=== PATIENT | female | born 1965 | race Caucasian/White ===

== ENCOUNTER 2016-05-11 07:15 | Day surgery (SDC) | payer OTHER ==
[2016-05-06 14:30] VITALS: BMI 47.1
[~2016-05-11 07:15] MED LIST: LACTATED RINGERS 1,000 ML IV SCH; LIDOCAINE 1% 20 ML VIAL (10MG/ML) FOR IV START INTRADERMA PRN
[2016-05-11] MEDS ORDERED: LACTATED RINGERS 1,000 ML IV ONE (07:40)
[2016-05-11] MEDS ORDERED: LIDOCAINE 1% 20 ML VIAL (10MG/ML) FOR IV START INTRADERMA ONE (07:41)
[2016-05-11 07:45] VITALS: TEMP 98
[2016-05-11 08:01] LABS: Glucose,Whole Blood 176 mg/dL (75-99)
[2016-05-11] MEDS ORDERED: LIDOCAINE 1% INJ 10MG/ML (20 ML MDV) ONE (08:36)
[2016-05-11] MEDS ORDERED: PROPOFOL 10 MG/ML 20 ML VIAL IV ONE (08:36)
--- NOTE | 2016-05-11 09:04 | P.PCN ---
Date of Procedure: 05/11/16 Procedure(s) Performed: Procedure: Total colonoscopy. Preoperative diagnosis: Screening for neoplasia. Postoperative diagnosis: Exam within normal limits. Preparation: HalfLytely prep. Sedation: Was provided by anesthesia. Brief clinical history: The patient is a 51-year-old female who is scheduled for this evaluation for screening for neoplasia. The patient had a prior exam around 7 years ago and she had couple polyps removed. At this time, she has no abdominal complaints, bleeding or anemia. Procedure: With the patient on her left lateral decubitus position and after informed consent and adequate sedation, the perianal area was inspected and it did not show any fissures or fistulas. He were no masses felt on digital rectal examination. The Olympus CFQ 160L video colonoscope was then inserted in the rectum in the usual fashion and advanced to the cecum. The mucosa appeared healthy. No polyps or tumors were seen or any obvious diverticular disease or other pathology. I retroflexed endoscope in the rectum before the endoscope was withdrawn. Low-grade internal hemorrhoids were noted but there was no evidence of bleeding. The patient tolerated the procedure well. Plan: The patient was reassured. She will follow-up with you as planned. Discussed dietary measures and local care for hemorrhoids. I am recommending repeat exam in 5 years.
[2016-05-11 09:08] VITALS: RESP 16
[2016-05-11 10:06] VITALS: BP 131/64; PULSE 69
== END 2016-05-11 10:06 | disposition home or self-care (01) ==
LOC: ORWHC2ENDO 07:15
DX: Z12.11 Encounter for screening for malignant neoplasm of colon (principal); Z86.010 Personal history of colon polyps; K64.8 Other hemorrhoids; J45.909 Unspecified asthma, uncomplicated; I10 Essential (primary) hypertension; F31.9 Bipolar disorder, unspecified; Z79.4 Long term (current) use of insulin; Z79.899 Other long term (current) drug therapy; Z88.2 Allergy status to sulfonamides
CPT/HCPCS: 81025; J2001; J2704; G0105; 99153

== ENCOUNTER → 2016-05-18 | Outpatient (CLI) | payer OTHER | END | disposition home or self-care (01) | LOC: LABWHC1 09:19 | PROVIDERS: ATTEND Internal Medicine Cardiovascular Disease | DX: E11.9 Type 2 diabetes mellitus without complications (principal) | CPT/HCPCS: 36415; 83704 ==

== ENCOUNTER → 2016-10-12 | Outpatient (CLI) | payer OTHER ==
--- NOTE | 2016-10-13 07:56 | CONS ---
CONSULTATION NOTE FOR SLEEP APNEA This is a 51-year-old morbidly obese female patient who is coming in for sleep apnea evaluation. The patient was diagnosed having SANDRA approximately 8 years ago followed at sleep center of [facility] in [place]. She was given CPAP therapy, which she used for years. Subsequently her use became less as the patient reported she started getting lazy and not utilizing the treatment and then the patient gained significant amount of weight and she is up to 320 pounds for now. It seems that the patient has gained 50 pounds over the past 5 years at least. As such, she has become much more symptomatic. She is snoring. She stops breathing all the time and she is feeling ( ) during the day to the point where the patient has to take naps and she has fallen asleep at undesired times. No history of any motor vehicle accident because of feeling sleepy or drowsy. She goes to bed between 10 to 11 p.m. Wakes up between 6 to 7 a.m. in the morning. On weekends, she wakes up between 8 to 11 a.m. She wakes up frequently throughout the night, mainly for urination. She has been told to jerk and twitch during sleep. She tries to sleep on her side and her back. No sleep paralysis. No hallucinations. No cataplexy. No restless legs in the lower extremities. PAST MEDICAL HISTORY: 1. Obstructive sleep apnea. 2. COPD/asthma. 3. Obese. 4. Hypertension. 5. Diabetes mellitus. 6. Bipolar disorder. Past surgical history includes right shoulder rotator cuff surgery in 2011. Allergies are to SULFA. Patient's medication list includes: 1. Calais 300 mg 4 times a day. 2. Wellbutrin 100 mg 1 tablet a day. 3. Lovastatin 100 mg p.o. q. day. 4. Hydrochlorothiazide 10 mg p.o. q. day. 5. Vitamin D one tablets a day. 6. Symbicort 160/4.5 two puffs twice a day. 7. Ventolin Rescue inhaler. 8. Albuterol nebulizer treatments on a p.r.n. basis. 9. She takes a ( ) laxative. SOCIAL HISTORY: The patient is a nonsmoker. No history of alcohol. No history of IV drugs. She has worked as a cook. FAMILY HISTORY: Brother has obstructive sleep apnea. REVIEW OF SYSTEMS: Twelve point review of systems was done. Positive findings were mentioned above. The patient has increased weight and she has been gaining weight and obesity. She has no grinding of the teeth. No sleep walking. She wakes up with a dry mouth. No anxiety or panic attacks. No palpitation or heartburn. No gasping for air in the middle of the night. No restlessness of the lower extremities. No sleep talking. No sweating. No anxiety. No ( ) phobia. No sexual dysfunction. She has history of bipolar disorder. BP 146/86, pulse 82, respirations 16, temperature 97.5, saturation 97% on room air. Neck size is 19. Henderson score is 13. Weight is 320 pounds. BMI is 48.5. GENERAL APPEARANCE: Obese, calm, comfortable. HEENT: Mallampati class IV. There is no goiter or neck mass. LUNGS: Diminished breath sounds bilaterally, otherwise, clear. HEART: Sounds regular rate and rhythm. Normal S1, S2. No S3, no S4, no murmur. ABDOMEN: Soft, nontender. No organomegaly. EXTREMITIES: No edema, no cyanosis or clubbing. IMPRESSION: 1. Obstructive sleep apnea. The patient is currently symptomatic and she is requesting a re-evaluation. Currently, she is not receiving any treatment. She has been diagnosed having obstructive sleep apnea more than 8 years ago. In the interim, she has gained more than 50 pounds. 2. Hypersomnia. Henderson score of 13. 3. Obesity, body mass index 48. 4. Bipolar disorder. 5. Chronic obstructive pulmonary disease/asthma. 6. Hypertension. 7. Diabetes mellitus. PLAN: 1. Encourage weight loss. 2. Encourage sleeping in side-douglas body position. 3. Proceed with a split night study. If the AHI is less than 40, will proceed with a CPAP titration during the split night to reconfirm and re-establish diagnosis and proceed with treatment. 4. Will continue to follow and make further recommendations based on the results of the split night study. JOCELYNED
== END ==
LOC: SLEEP 13:22
PROVIDERS: ATTEND Internal Medicine Critical Care Medicine
DX: G47.33 Obstructive sleep apnea (adult) (pediatric) (principal); G47.10 Hypersomnia, unspecified; E66.9 Obesity, unspecified; J44.9 Chronic obstructive pulmonary disease, unspecified; I10 Essential (primary) hypertension; E11.9 Type 2 diabetes mellitus without complications; F31.9 Bipolar disorder, unspecified; Z68.42 Body mass index [BMI] 45.0-49.9, adult; Z88.2 Allergy status to sulfonamides; Z79.899 Other long term (current) drug therapy
CPT/HCPCS: 99211

== ENCOUNTER → 2017-07-06 | Outpatient (CLI) | payer OTHER ==
[2017-07-06 16:00] LABS: Albumin 4.2 g/dL (3.5-5.0); Basophils % (A) 0 %; Calcium 10.6 mg/dL (8.4-10.2); Eosinophils # (A) 0.2 k/uL (0-0.7); Eosinophils % (A) 2 %; HCT 38.6 % (34.0-46.0); Lymphocytes # (A) 1.6 k/uL (1.0-4.8); Lymphocytes % (A) 20 %; MCH 30.3 pg (25.0-35.0); MCHC 33.6 g/dL (31.0-37.0); MCV 90.1 fL (80.0-100.0); Mean Platelet Volume 6.9; Monocytes # (A) 0.4 k/uL (0-1.0); Monocytes % (A) 5 %; Neutrophils # (A) 5.7 k/uL (1.3-7.7); Neutrophils % (A) 71 %; Platelet Count 310 k/uL (150-450); Poikilocytosis Slight; Potassium 4.2 mmol/L (3.5-5.1); RBC 4.29 m/uL (3.80-5.40); RDW 13.6 % (11.5-15.5); Total Bilirubin 0.5 mg/dL (0.2-1.3); Total Protein 7.2 g/dL (6.3-8.2); WBC 8.1 k/uL (3.8-10.6)
[2017-07-06 16:15] LABS: T4, Free (Free Thyroxine) 0.96 ng/dL (0.78-2.19)
== END | disposition home or self-care (01) ==
LOC: LABWHC1 15:21
PROVIDERS: ATTEND Psychiatry & Neurology Psychiatry
DX: F31.9 Bipolar disorder, unspecified (principal)
CPT/HCPCS: 36415; 80053; 80178; 84439; 84443; 84479; 85025

== ENCOUNTER → 2017-07-06 | Outpatient (CLI) | payer OTHER ==
--- NOTE | 2017-07-08 10:22 | MM ---
Reason for exam: screening (asymptomatic). Last mammogram was performed 1 year and 7 months ago. History: Patient is postmenopausal and is nulliparous. Family history of breast cancer in maternal grandmother and breast cancer in sister at age 40. Physical Findings: A clinical breast exam by your physician is recommended on an annual basis and results should be correlated with mammographic findings. MG Screening Mammo w CAD Bilateral CC and MLO view(s) were taken. Prior study comparison: December 16, 2015, mammogram, performed at [facility]. There are scattered fibroglandular densities. No significant changes when compared with prior studies. ASSESSMENT: Negative, BI-RAD 1 RECOMMENDATION: Routine screening mammogram of both breasts in 1 year.
== END | disposition home or self-care (01) ==
LOC: RADMAMWWP 14:58
PROVIDERS: ATTEND Family Medicine
DX: Z12.31 Encounter for screening mammogram for malignant neoplasm of breast (principal)
CPT/HCPCS: 77067

== ENCOUNTER → 2018-11-29 | Outpatient (CLI) | payer OTHER ==
--- NOTE | 2018-11-30 12:19 | MM ---
Reason for exam: screening (asymptomatic). Last mammogram was performed 1 year and 5 months ago. History: Patient is postmenopausal and is nulliparous. Family history of breast cancer in maternal grandmother and breast cancer in sister at age 40. Physical Findings: A clinical breast exam by your physician is recommended on an annual basis and results should be correlated with mammographic findings. MG Screening Mammo w CAD Bilateral CC and MLO view(s) were taken. Prior study comparison: July 06, 2017, bilateral MG screening mammo w CAD. December 16, 2015, mammogram, performed at [facility]. There are scattered fibroglandular densities. No suspicious abnormality. No significant changes when compared with prior studies. ASSESSMENT: Negative, BI-RAD 1 RECOMMENDATION: Routine screening mammogram of both breasts in 1 year.
== END | disposition home or self-care (01) ==
LOC: RADMAMWWP 13:24
PROVIDERS: ATTEND Family Medicine
DX: Z12.31 Encounter for screening mammogram for malignant neoplasm of breast (principal)
CPT/HCPCS: 77067

== ENCOUNTER → 2019-01-02 | Outpatient (CLI) | payer OTHER | END | disposition home or self-care (01) | LOC: LABWHC1 09:54 | PROVIDERS: ATTEND Clinical Nurse Specialist Psychiatric/Mental Health | DX: F31.9 Bipolar disorder, unspecified (principal) | CPT/HCPCS: 36415; 80178 ==

== ENCOUNTER → 2019-03-23 | Outpatient (CLI) | payer OTHER ==
--- NOTE | 2019-03-24 10:51 | US ---
EXAMINATION TYPE: US pelvis complete transvag DATE OF EXAM: 03/23/2019 COMPARISON: NONE CLINICAL HISTORY: N95.0 Postmenopausal bleeding, R10.9 Unspecified. TECHNIQUE: . Transabdominal sonographic images of the pelvis were acquired. Transvaginal sonographi c images were medically necessary to better assess the following anatomy: Endometrium Date of LMP: 5 years ago EXAM MEASUREMENTS: Uterus: 6.9 x 3.0 x 3.9 cm Endometrial Stripe: 0.6 cm Right Ovary: Not visualized Left Ovary: Not visualized 1. Uterus: Anteverted Heterogeneous 2. Endometrium: Thickened for postmenopausal patient 3. Right Ovary: Obscured by overlying bowel gas 4. Left Ovary: Obscured by overlying bowel gas 5. Bilateral Adnexa: wnl as visualized 6. Posterior cul-de-sac: wnl IMPRESSION: Abnormal endometrial thickening, consider YARN EXAMINER consult, limited exam
== END | disposition home or self-care (01) ==
LOC: RADUSWWP 14:54
PROVIDERS: ATTEND Nurse Practitioner Family
DX: R93.89 Abnormal findings on diagnostic imaging of other specified body structures (principal); N95.0 Postmenopausal bleeding; R10.9 Unspecified abdominal pain
CPT/HCPCS: 76830; 76856

== ENCOUNTER → 2020-02-22 | Outpatient (CLI) | payer OTHER ==
--- NOTE | 2020-02-25 13:21 | MM ---
Reason for exam: screening (asymptomatic). Last mammogram was performed 1 year and 3 months ago. History: Patient is postmenopausal and is nulliparous. Family history of breast cancer in maternal grandmother and breast cancer in sister at age 40. Physical Findings: A clinical breast exam by your physician is recommended on an annual basis and results should be correlated with mammographic findings. MG Screening Mammo w CAD Bilateral CC and MLO view(s) were taken. Prior study comparison: November 29, 2018, bilateral MG screening mammo w CAD. July 06, 2017, bilateral MG screening mammo w CAD. There are scattered fibroglandular densities. Focal asymmetry middle left breast. No significant changes when compared with prior studies. ASSESSMENT: Benign, BI-RAD 2 RECOMMENDATION: Routine screening mammogram of both breasts in 1 year.
== END | disposition home or self-care (01) ==
LOC: RADMAMWWP 15:19
PROVIDERS: ATTEND Family Medicine
DX: Z12.31 Encounter for screening mammogram for malignant neoplasm of breast (principal)
CPT/HCPCS: 77067

== ENCOUNTER 2020-03-20 09:10 | Day surgery (SDC) | payer OTHER ==
[2020-03-19 08:58] VITALS: BMI 51.7
[~2020-03-20 09:10] MED LIST changes: +LIDOCAINE 1% (10MG/ML) FOR IV START INTRADERMA PRN; -LIDOCAINE 1% 20 ML VIAL (10MG/ML) FOR IV START INTRADERMA PRN
[2020-03-20 09:25] VITALS: RESP 16; TEMP 96.9
[2020-03-20 09:43] LABS: Glucose,Whole Blood 179 mg/dL (75-99)
[2020-03-20] MEDS ORDERED: LIDOCAINE 1% INJ 10MG/ML (20 ML MDV) ONE (10:15)
[2020-03-20] MEDS ORDERED: PROPOFOL 10 MG/ML 20 ML VIAL IV ONE (10:15)
[2020-03-20] MEDS ORDERED: GLYCOPYRROLATE 0.2 MG/ML 2 ML VIAL ONE (10:15)
--- NOTE | 2020-03-20 10:38 | P.PCN ---
Date of Procedure: 03/20/20 Procedure(s) Performed: BRIEF HISTORY: Patient is a 55-year-old pleasant white female scheduled for an elective colonoscopy as a part of evaluation of chronic constipation of several months duration. Lately has been progressively getting worse. She is hence scheduled for colonoscopy to evaluate further. PROCEDURE PERFORMED: Colonoscopy. PREOPERATIVE DIAGNOSIS: Chronic constipation. IV sedation per Anesthesia. PROCEDURE: After informed consent was obtained, the patient, was brought into the endoscopy unit. IV sedation was administered by Anesthesia under continuous monitoring. Digital rectal examination was normal. Initially the Olympus CF-160 flexible video colonoscope was then inserted in the rectum, gradually advanced into the ascending colon without any difficulty. Careful examination was performed as the scope was gradually being withdrawn. Ileocecal valve was visualized and appeared normal. Scope could not be advanced into the base of the cecum despite multiple attempts and giving abdominal pressure. In the base of the cecum revealed. Prep was poor and several areas of the colon, precluding adequate visualization. Irrigation was performed.. The visualized portions of the mucosa of the ascending colon, transverse colon, descending colon, sigmoid colon, and rectum appeared normal. Retroflexion was performed in the rectum and no lesions were seen. The patient tolerated the procedure well. IMPRESSION: Normal-appearing colon from rectum to cecum with no evidence of colorectal neoplasia . Poor prep in some areas of the colon precluding adequate visualization RECOMMENDATIONS: Findings of this examination were discussed with the patient as well as a family. She will continue with MiraLAX 1 scoop twice daily and continue to increase fiber in the diet. She'll be seen in office. Recommend repeat colonoscopy in 5 years.
[2020-03-20 10:54] VITALS: BP 116/72; PULSE 57
== END 2020-03-20 11:14 | disposition home or self-care (01) ==
LOC: ORWHC2ENDO 09:10
PROVIDERS: ATTEND Internal Medicine Gastroenterology
DX: K59.09 Other constipation (principal); I10 Essential (primary) hypertension; J44.9 Chronic obstructive pulmonary disease, unspecified; G47.33 Obstructive sleep apnea (adult) (pediatric); E11.9 Type 2 diabetes mellitus without complications; E66.01 Morbid (severe) obesity due to excess calories; Z88.2 Allergy status to sulfonamides; Z99.89 Dependence on other enabling machines and devices; Z79.4 Long term (current) use of insulin; Z79.899 Other long term (current) drug therapy; Z79.51 Long term (current) use of inhaled steroids; Z68.43 Body mass index [BMI] 50.0-59.9, adult
CPT/HCPCS: 45378; J2001; J2704

== ENCOUNTER → 2021-07-28 | Outpatient (CLI) | payer OTHER ==
[2021-07-29 00:59] LABS: Basophils # (A) 0.05 X 10*3/uL (0.00-0.10); Basophils % (A) 0.6 %; Eosinophils # (A) 0.12 X 10*3/uL (0.04-0.35); Eosinophils % (A) 1.6 %; HCT 37.3 % (37.2-46.3); HGB 12.2 g/dL (12.0-15.0); Immature Grans, Automated 0.4 %; Lymphocytes # (A) 1.68 X 10*3/uL (0.90-5.00); Lymphocytes % (A) 21.8 %; MCH 31.5 pg (27.0-32.0); MCHC 32.7 g/dL (32.0-37.0); MCV 96.4 fL (80.0-97.0); Mean Platelet Volume 11.3 fL (9.5-12.2); Monocytes # (A) 0.65 X 10*3/uL (0.20-1.00); Monocytes % (A) 8.4 %; NRBC Per 100 WBC 0 /100 WBCS (0.0-0.0); Neutrophils # (A) 5.19 X 10*3/uL (1.80-7.70); Neutrophils % (A) 67.2 %; Platelet Count 255 X 10*3/uL (140-440); RBC 3.87 X 10*6/uL (4.10-5.20); RDW 13.1 % (11.5-14.5); WBC 7.72 X 10*3/uL (4.50-10.00)
[2021-07-29 05:01] LABS: ALT 25 U/L (8-44); AST 16 U/L (13-35); African American GFR (CKD) 82.3 (60.0-200.0); Albumin 4.6 g/dL (3.8-4.9); Albumin/Globulin Ratio 1.92 (1.60-3.17); Alkaline Phosphatase 80 U/L (41-126); BUN/Creat Ratio 17.22 Ratio (12.00-20.00); Blood Urea Nitrogen 15.5 mg/dL (9.0-27.0); Calcium 10.4 mg/dL (8.7-10.3); Carbon Dioxide 17.6 mmol/L (20.0-27.5); Chloride 105 mmol/L (96-109); Globulin 2.4 g/dL (1.6-3.3); Glucose 138 mg/dL (70-110); Potassium 4.2 mmol/L (3.5-5.5); Sodium 136 mmol/L (135-145)
== END | disposition home or self-care (01) ==
LOC: LABWHC1 14:20
PROVIDERS: ATTEND Nurse Practitioner Family
DX: E11.65 Type 2 diabetes mellitus with hyperglycemia (principal); G62.9 Polyneuropathy, unspecified; F31.32 Bipolar disorder, current episode depressed, moderate
CPT/HCPCS: 36415; 80053; 80178; 84443; 85025

== ENCOUNTER → 2021-10-02 | Outpatient (CLI) | payer OTHER ==
--- NOTE | 2021-10-03 01:18 | MR ---
EXAMINATION TYPE: MR brain wo/w con DATE OF EXAM: 10/02/2021 COMPARISON: Dizziness HISTORY: Dizziness, headaches, nausea, sweats. CONTRAST: Standard multiplanar, multisequence MRI departmental protocol images were obtained without contrast a nd with 10 mL intravenous Gadavist gadolinium contrast. Ventricles have fairly normal size. There is no mass effect or midline shift. No sign of intracranial hemorrhage. Diffusion images show no sign of an acute infarct. The corpus callosum is intact. Sella turcica is intact. There is no evidence of orbital mass. There i s a large cisterna magna noted. This is also possible arachnoid cyst and measures 2.3 cm. There is no rmal enhancement of the venous sinuses. No pathologic enhancement. IMPRESSION: Negative MR scan of the brain. Large cisterna magna or midline posterior fossa arachnoid cyst.
== END | disposition home or self-care (01) ==
LOC: RADMRIMAIN 19:21
PROVIDERS: ATTEND Nurse Practitioner Family
DX: G93.89 Other specified disorders of brain (principal); R42 Dizziness and giddiness; R51.9 Headache, unspecified; R11.0 Nausea; R68.83 Chills (without fever)
CPT/HCPCS: 70553; A9585

== ENCOUNTER → 2021-10-26 | Outpatient (CLI) | payer OTHER ==
--- NOTE | 2021-10-26 16:35 | US ---
EXAMINATION TYPE: US venous doppler duplex LE BI DATE OF EXAM: 10/26/2021 4:24 PM COMPARISON: NONE CLINICAL HISTORY: 56-year-old female R60.0 EDEMA, S80.12XA, S80.11XA CONTUSION LOWER LEGS. SIDE PERFORMED: Bilateral TECHNIQUE: The lower extremity deep venous system is examined utilizing real time linear array sonog kannan with graded compression, doppler sonography and color-flow sonography. VESSELS IMAGED: Common Femoral Vein Deep Femoral Vein Greater Saphenous Vein * Femoral Vein Popliteal Vein Small Saphenous Vein * Proximal Calf Veins (* superficial vessels) Field Installer notes: Morbidly obese patient with large legs. Technically difficult and somewhat limited study. Right Leg: Negative for DVT Left Leg: Negative for DVT IMPRESSION: Limitations as above due to body habitus. No visualized DVT within the bilateral lower extremities im aged from the groin to the knees.
== END | disposition home or self-care (01) ==
LOC: RADUSWWP 15:45
PROVIDERS: ATTEND Family Medicine
DX: R60.0 Localized edema (principal); S80.12XA Contusion of left lower leg, initial encounter; S80.11XA Contusion of right lower leg, initial encounter
CPT/HCPCS: 93970

== ENCOUNTER → 2021-10-26 | Outpatient (CLI) | payer OTHER | END | disposition home or self-care (01) | LOC: LABWHC1 16:41 | PROVIDERS: ATTEND Nurse Practitioner Family | DX: F31.32 Bipolar disorder, current episode depressed, moderate (principal); R60.0 Localized edema; R51.9 Headache, unspecified; R11.0 Nausea; R68.83 Chills (without fever); H81.12 Benign paroxysmal vertigo, left ear | CPT/HCPCS: 36415; 85025; 85652 ==

== ENCOUNTER → 2021-11-04 | Outpatient (CLI) | payer OTHER ==
[2021-11-04 11:37] LABS: Basophils % (A) 0 %; Eosinophils # (A) 0.1 k/uL (0-0.7); Eosinophils % (A) 3 %; HCT 40.6 % (34.0-46.0); HGB 12.6 gm/dL (11.4-16.0); Lymphocytes # (A) 1.3 k/uL (1.0-4.8); Lymphocytes % (A) 25 %; MCH 30.6 pg (25.0-35.0); MCHC 31.1 g/dL (31.0-37.0); MCV 98.5 fL (80.0-100.0); Mean Platelet Volume 8.5; Monocytes # (A) 0.3 k/uL (0-1.0); Monocytes % (A) 6 %; Neutrophils # (A) 3.3 k/uL (1.3-7.7); Neutrophils % (A) 64 %; Platelet Count 219 k/uL (150-450); RBC 4.13 m/uL (3.80-5.40); RDW 12.4 % (11.5-15.5); WBC 5.1 k/uL (3.8-10.6)
[2021-11-04 12:03] LABS: ALT 19 U/L (4-34); AST 19 U/L (14-36); African American GFR (CKD) >90 (>60 ml/min/1.73 sqM); Albumin 4.4 g/dL (3.5-5.0); Albumin/Globulin Ratio 1.7; Alkaline Phosphatase 73 U/L (38-126); Anion Gap 3 mmol/L; Blood Urea Nitrogen 15 mg/dL (7-17); Carbon Dioxide 26 mmol/L (22-30); Chloride 106 mmol/L (98-107); Globulin 2.6 g/dL; Glucose 133 mg/dL (74-99); Magnesium 1.8 mg/dL (1.6-2.3); Non-African American GFR(CKD) 84 (>60 ml/min/1.73 sqM); Potassium 4.6 mmol/L (3.5-5.1); Sodium 135 mmol/L (137-145); Total Bilirubin 0.7 mg/dL (0.2-1.3)
[2021-11-04 14:12] LABS: Erythrocyte Sedimentation Rate 6 mm/hr (0-20)
== END | disposition home or self-care (01) ==
LOC: LABWHC1 09:44
PROVIDERS: ATTEND Family Medicine
DX: H81.12 Benign paroxysmal vertigo, left ear (principal); F31.32 Bipolar disorder, current episode depressed, moderate; R11.0 Nausea; R68.83 Chills (without fever); R60.0 Localized edema
CPT/HCPCS: 36415; 80053; 80178; 83735; 85025; 85652; 86038

== ENCOUNTER 2021-11-10 14:16 | Emergency (ER) | payer OTHER ==
[2021-11-10 15:23] VITALS: BP 146/70; PULSE 60; RESP 18; TEMP 97
[2021-11-10] MEDS ORDERED: KETOROLAC 15 MG/ML 1 ML VIAL IM STA (15:41)
--- NOTE | 2021-11-10 15:58 | XR ---
EXAMINATION TYPE: XR knee complete LT DATE OF EXAM: 11/10/2021 CLINICAL HISTORY: pain TECHNIQUE: Three views of the left knee are obtained. COMPARISON: None. FINDINGS: There is no acute fracture/dislocation. The tri-compartment joint spaces appear within no rmal limits. The overlying soft tissue appears unremarkable. IMPRESSION: There is no acute fracture or dislocation ICD 10 NO FRACTURE, INITIAL EVALUATION
--- NOTE | 2021-11-10 16:10 | ED ---
General Adult HPI - General Chief complaint: Extremity Problem,Nontraumatic Stated complaint: L knee pain Time Seen by Provider: 11/10/21 15:35 Source: patient Mode of arrival: ambulatory Limitations: no limitations - History of Present Illness Initial comments: Patient is a 56-year-old female presenting with chief complaint of left knee pain. Pain is been ongoing for the last 4 days, she denies any trauma or injury. She states pain is mainly in the back of the knee, also on the lateral portion of the knee. She admits to pain with bearing weight. She has full range of motion, there is some pain with range of motion. Patient has been taking Tylenol for pain control. She denies any numbness, tingling, weakness, redness, fever, chills, discoloration, loss of range of motion. - Related Data Home Medications Medication Instructions Recorded Confirmed Budesonide/Formoterol Fumarate 2 puff INHALATION DAILY 05/06/16 03/20/20 [Symbicort 160-4.5 Mcg Inhaler] Insulin Glargine [Lantus] 14 unit SQ HS 05/06/16 03/20/20 Spiro Carbonate 300 mg PO QID 05/06/16 03/20/20 Loratadine [Claritin] 10 mg PO DAILY 05/06/16 03/20/20 Losartan [Cozaar] 100 mg PO DAILY 05/06/16 03/20/20 Naproxen 500 mg PO Q12HR 05/06/16 03/20/20 buPROPion HCL [Wellbutrin SR] 150 mg PO DAILY 05/06/16 03/20/20 Albuterol Sulfate [Proair Hfa] 2 inhalation INHALATION 02/18/20 03/20/20 DIRECTED PRN Atorvastatin [Lipitor] 40 mg PO HS 02/18/20 03/20/20 Docusate [Colace] 100 mg PO DAILY 02/18/20 03/20/20 Oxybutynin Chloride [Ditropan] 5 mg PO DAILY 02/18/20 03/20/20 Pioglitazone [Actos] 15 mg PO DAILY 02/18/20 03/20/20 Spironolactone [Aldactone] 100 mg PO DAILY 02/18/20 03/20/20 amLODIPine [Norvasc] 5 mg PO DAILY 02/18/20 03/20/20 Omeprazole [PriLOSEC] 40 mg PO DAILY 03/19/20 03/20/20 Allergies Allergy/AdvReac Type Severity Reaction Status Date / Time Sulfa (Sulfonamide Allergy Rash/Hives Verified 11/10/21 15:20 Antibiotics) Review of Systems ROS Statement: Those systems with pertinent positive or pertinent negative responses have been documented in the HPI. ROS Other: All systems not noted in ROS Statement are negative. Past Medical History Past Medical History: Asthma, COPD, Diabetes Mellitus, Hypertension, Respiratory Disorder, Sleep Apnea/CPAP/BIPAP Additional Past Medical History / Comment(s): Heart murmur. Chronic bronchitis. Uses CPAP. chronic Constipation problems History of Any Multi-Drug Resistant Organisms: None Reported Past Surgical History: Orthopedic Surgery Additional Past Surgical History / Comment(s): Rt rotator cuff repair. Colonoscopy x2 Past Anesthesia/Blood Transfusion Reactions: Motion Sickness Additional Past Anesthesia/Blood Transfusion Reaction / Comment(s): sl motion sickness Past Psychological History: Anxiety, Bipolar Smoking Status: Never smoker - Past Family History Sister(s) Family Medical History: Cancer Additional Family Medical History / Comment(s): breast cancer. (Maternal Grandmother - breast cancer) General Exam Limitations: no limitations General appearance: alert, in no apparent distress Head exam: Present: atraumatic, normocephalic, normal inspection Eye exam: Present: normal appearance, EOMI. Absent: scleral icterus, periorbital swelling Neck exam: Present: normal inspection Left Knee exam: Present: normal inspection, full ROM, tenderness. Absent: swelling (Difficult to assess due to body habitus) Neurovascular tendon exam: Present: no vascular compromise. Absent: motor deficit, sensory deficit Neurological exam: Present: alert, oriented X3, CN II-XII intact Psychiatric exam: Present: normal affect, normal mood Skin exam: Present: warm, dry, intact, normal color. Absent: rash Course Vital Signs 11/10/21 15:20 Temperature 97 F L Pulse Rate 60 Respiratory 18 Rate Blood Pressure 146/70 O2 Sat by Pulse 100 Oximetry Medical Decision Making - Medical Decision Making Patient is a 56-year-old female presenting with chief complaint of left knee pain. Pain has been present for the last 4 days, most notable with weightbearing. On examination patient has full range of motion of the knee, keely e tenderness behind the knee, no joint line tenderness. No sensory, motor, or vascular deficit. X-ray shows no acute fracture or dislocation. Likely knee strain. Patient is instructed on supportive treatment with rest, ice, compress, elevate as well as alternating Motrin and Tylenol as needed. Patient is given Toradol here in the ER. Instructed to utilize supportive knee brace. Follow-up with PCP in one to 2 days. Report back to ER if any new or worsening symptoms. Discussed return parameters and answered all questions. Patient conveyed verbal understanding and agreed to the plan. My attending is Dr. Putnam. Disposition Clinical Impression: Knee pain Disposition: HOME SELF-CARE Condition: Good Instructions (If sedation given, give patient instructions): Knee Pain (ED) Additional Instructions: Follow-up with PCP in one to 2 days. Report back to ER with any new or worsening symptoms. Take Motrin and Tylenol as needed for pain control. Rest, ice, compress, elevate the knee for symptomatic management. Utilize supportive knee brace. Is patient prescribed a controlled substance at d/c from ED?: No Referrals: Jacey Mireles MD [Primary Care Provider] - 1-2 days Time of Disposition: 16:10
== END 2021-11-10 16:20 | disposition home or self-care (01) ==
LOC: EC 14:16
DX: M25.562 Pain in left knee (principal); J44.9 Chronic obstructive pulmonary disease, unspecified; E11.9 Type 2 diabetes mellitus without complications; I10 Essential (primary) hypertension; F41.9 Anxiety disorder, unspecified; F31.9 Bipolar disorder, unspecified; Z79.4 Long term (current) use of insulin; Z79.899 Other long term (current) drug therapy; Z88.2 Allergy status to sulfonamides; Z79.51 Long term (current) use of inhaled steroids
CPT/HCPCS: 73562; 99283; 96372; J1885

== ENCOUNTER 2022-01-02 14:16 | Emergency (ER) | payer OTHER ==
[2022-01-02] MEDS ORDERED: HYDROcodone/APAP 7.5-325MG 1 EACH TAB PO ONE (14:38)
--- NOTE | 2022-01-02 15:11 | XR ---
EXAMINATION TYPE: XR elbow complete LT DATE OF EXAM: 01/02/2022 COMPARISON: NONE HISTORY: Pain TECHNIQUE: 3 views FINDINGS: Elbow joint spaces are fairly normal. I see no fracture nor dislocation. No sign of joint e ffusion. IMPRESSION: Negative left elbow exam.
--- NOTE | 2022-01-02 15:32 | ED ---
Upper Extremity HPI - General Chief Complaint: Extremity Injury, Upper Stated Complaint: elbow pain Time Seen by Provider: 01/02/22 14:21 Source: patient Mode of arrival: ambulatory Limitations: no limitations - History of Present Illness Initial Comments: Patient is a 56 year-old female who presents with left elbow pain. Patient states pain started today. She denies injury. Patient states she does not have pain when elbow is moving however when she stops moving her elbow hurts. Patient taking Motrin 800 with some relief. Denies numbness and tingling. - Related Data Home Medications Medication Instructions Recorded Confirmed Budesonide/Formoterol Fumarate 2 puff INHALATION DAILY 05/06/16 03/20/20 [Symbicort 160-4.5 Mcg Inhaler] Insulin Glargine [Lantus] 14 unit SQ HS 05/06/16 03/20/20 Baskin Carbonate 300 mg PO QID 05/06/16 03/20/20 Loratadine [Claritin] 10 mg PO DAILY 05/06/16 03/20/20 Losartan [Cozaar] 100 mg PO DAILY 05/06/16 03/20/20 Naproxen 500 mg PO Q12HR 05/06/16 03/20/20 buPROPion HCL [Wellbutrin SR] 150 mg PO DAILY 05/06/16 03/20/20 Albuterol Sulfate [Proair Hfa] 2 inhalation INHALATION 02/18/20 03/20/20 DIRECTED PRN Atorvastatin [Lipitor] 40 mg PO HS 02/18/20 03/20/20 Docusate [Colace] 100 mg PO DAILY 02/18/20 03/20/20 Oxybutynin Chloride [Ditropan] 5 mg PO DAILY 02/18/20 03/20/20 Pioglitazone [Actos] 15 mg PO DAILY 02/18/20 03/20/20 Spironolactone [Aldactone] 100 mg PO DAILY 02/18/20 03/20/20 amLODIPine [Norvasc] 5 mg PO DAILY 02/18/20 03/20/20 Omeprazole [PriLOSEC] 40 mg PO DAILY 03/19/20 03/20/20 Previous Rx's Medication Instructions Recorded Ketorolac [Toradol] 10 mg PO Q8HR #15 tab 01/02/22 Allergies Allergy/AdvReac Type Severity Reaction Status Date / Time Sulfa (Sulfonamide Allergy Rash/Hives Verified 01/02/22 14:20 Antibiotics) Review of Systems ROS Statement: Those systems with pertinent positive or pertinent negative responses have been documented in the HPI. ROS Other: All systems not noted in ROS Statement are negative. Past Medical History Past Medical History: Asthma, COPD, Diabetes Mellitus, Hypertension, Respiratory Disorder, Sleep Apnea/CPAP/BIPAP Additional Past Medical History / Comment(s): Heart murmur. Chronic bronchitis. Uses CPAP. chronic Constipation problems History of Any Multi-Drug Resistant Organisms: None Reported Past Surgical History: Orthopedic Surgery Additional Past Surgical History / Comment(s): Rt rotator cuff repair. Colonoscopy x2 Past Anesthesia/Blood Transfusion Reactions: Motion Sickness Additional Past Anesthesia/Blood Transfusion Reaction / Comment(s): sl motion sickness Past Psychological History: Anxiety, Bipolar Smoking Status: Never smoker Past Alcohol Use History: None Reported Past Drug Use History: None Reported - Past Family History Sister(s) Family Medical History: Cancer Additional Family Medical History / Comment(s): breast cancer. (Maternal Grandmother - breast cancer) General Exam Limitations: no limitations General appearance: alert, in no apparent distress Head exam: Present: atraumatic, normocephalic, normal inspection Respiratory exam: Present: normal lung sounds bilaterally. Absent: respiratory distress, wheezes, rales, rhonchi, stridor Cardiovascular Exam: Present: regular rate, normal rhythm, normal heart sounds. Absent: systolic murmur, diastolic murmur, rubs, gallop, clicks Left Upper Arm exam: Present: normal inspection, full ROM. Absent: tenderness, swelling Elbow exam: Present: normal inspection, full ROM. Absent: tenderness, swelling Forearm Wrist exam: Present: normal inspection, full ROM. Absent: tenderness Vascular: Present: normal capillary refill. Absent: vascular compromise, Pallo Course Vital Signs 01/02/22 01/02/22 14:18 16:12 Temperature 98 F 97.6 F Pulse Rate 65 60 Respiratory 20 18 Rate Blood Pressure 182/71 152/72 O2 Sat by Pulse 99 100 Oximetry Medical Decision Making - Medical Decision Making This is a 56-year-old female presents with left elbow pain. No abnormal physical exam findings. X-ray is negative for acute process. Patient given Toradol with some relief. She'll need to follow up with primary care for further evaluation. Will send her home with Toradol. Dr. Brannon is my attending. Disposition Clinical Impression: Left elbow pain Disposition: HOME SELF-CARE Condition: Good Instructions (If sedation given, give patient instructions): Arthralgia (ED) Additional Instructions: Take medication as directed. Do not take other anti-inflammatories while taking Toradol. Tylenol can be taking with Toradol for extra pain relief. Please follow-up with primary care provider in one to 2 days. Return to the emergency department experience new, concerning, or worsening symptoms. Prescriptions: Ketorolac [Toradol] 10 mg PO Q8HR #15 tab Is patient prescribed a controlled substance at d/c from ED?: No Referrals: Jacey Mireles MD [Primary Care Provider] - 1-2 days Time of Disposition: 15:31
[2022-01-02 16:45] VITALS: BP 152/72; PULSE 60; RESP 18; TEMP 97.6
== END 2022-01-02 16:12 | disposition home or self-care (01) ==
LOC: EC 14:16
DX: M25.522 Pain in left elbow (principal); J44.9 Chronic obstructive pulmonary disease, unspecified; E11.9 Type 2 diabetes mellitus without complications; I10 Essential (primary) hypertension; Z79.4 Long term (current) use of insulin; Z79.899 Other long term (current) drug therapy; Z88.2 Allergy status to sulfonamides
CPT/HCPCS: 99283

== ENCOUNTER → 2022-02-10 | Outpatient (CLI) | payer OTHER ==
[2022-02-10 18:12] LABS: Basophils # (A) 0.03 X 10*3/uL (0.00-0.10); Basophils % (A) 0.5 %; Eosinophils # (A) 0.07 X 10*3/uL (0.04-0.35); Eosinophils % (A) 1.1 %; HCT 34.8 % (37.2-46.3); HGB 11.1 g/dL (12.0-15.0); Immature Grans, Automated 0.5 %; Lymphocytes # (A) 1.12 X 10*3/uL (0.90-5.00); Lymphocytes % (A) 18.2 %; MCH 30.9 pg (27.0-32.0); MCHC 31.9 g/dL (32.0-37.0); MCV 96.9 fL (80.0-97.0); Mean Platelet Volume 10.6 fL (9.5-12.2); Monocytes # (A) 0.37 X 10*3/uL (0.20-1.00); NRBC Per 100 WBC 0 /100 WBCS (0.0-0.0); Neutrophils # (A) 4.52 X 10*3/uL (1.80-7.70); Neutrophils % (A) 73.7 %; Platelet Count 239 X 10*3/uL (140-440); RBC 3.59 X 10*6/uL (4.10-5.20); RDW 12.5 % (11.5-14.5); WBC 6.14 X 10*3/uL (4.50-10.00)
[2022-02-10 20:18] LABS: ALT 24 U/L (8-44); AST 14 U/L (13-35); African American GFR (CKD) 65.5 (60.0-200.0); Albumin 4.1 g/dL (3.8-4.9); Albumin/Globulin Ratio 1.91 (1.60-3.17); Alkaline Phosphatase 91 U/L (41-126); Blood Urea Nitrogen 20.2 mg/dL (9.0-27.0); Calcium 9.9 mg/dL (8.7-10.3); Carbon Dioxide 21.6 mmol/L (20.0-27.5); Chloride 106 mmol/L (96-109); Chol/HDL Ratio 2.08 Ratio; Globulin 2.1 g/dL (1.6-3.3); Glucose 211 mg/dL (70-110); LDL Cholesterol,Calculated 49.7 mg/dL (0.0-131.0); Non-African American GFR(CKD) 56.5 (60.0-200.0); Potassium 4.8 mmol/L (3.5-5.5); Sodium 138 mmol/L (135-145); Total Protein 6.2 g/dL (6.2-8.2); VLDL Calculation 12.12 mg/dL (5.00-40.00)
== END | disposition home or self-care (01) ==
LOC: LABWHC1 11:17
PROVIDERS: ATTEND Nurse Practitioner Family
DX: Z13.29 Encounter for screening for other suspected endocrine disorder (principal); I10 Essential (primary) hypertension; E11.65 Type 2 diabetes mellitus with hyperglycemia; E55.9 Vitamin D deficiency, unspecified; E78.2 Mixed hyperlipidemia
CPT/HCPCS: 36415; 80053; 80061; 82306; 84443; 85025

== ENCOUNTER 2022-04-30 10:15 | Emergency (ER) | payer OTHER ==
[2022-04-30 10:20] VITALS: TEMP 98
[2022-04-30] MEDS ORDERED: LIDOCAINE 1% INJ 10MG/ML (30 ML VIAL-PF) SQ ONE (10:50)
[2022-04-30] MEDS ORDERED: DIPH,PERTUS(ACELL)TETVAC-LF 0.5 ML VIAL IM ONE (10:50)
--- NOTE | 2022-04-30 10:53 | ED ---
Wound/Laceration HPI - General Chief Complaint: Wound/Laceration Stated Complaint: rt hand laceration Time Seen by Provider: 04/30/22 10:22 Source: patient, RN notes reviewed Mode of arrival: ambulatory Limitations: no limitations - History of Present Illness Initial Comments: This is a 57-year-old female who presents to the emergency department for a la ceration to the right hand. States that at work, she ended up cutting it on a slicing machine. Unsure when her last tetanus vaccine was. She has minor associated pain. Denies any fevers, chills, sore throat, cough, dyspnea, chest pain, palpitations, abdominal pain, nausea, vomiting, diarrhea, back pain, or headaches. Extremity Location: Right: Hand Place: work Patient Tetanus UTD: No Context: accidental - Related Data Home Medications Medication Instructions Recorded Confirmed Budesonide/Formoterol Fumarate 2 puff INHALATION DAILY 05/06/16 03/20/20 [Symbicort 160-4.5 Mcg Inhaler] Insulin Glargine [Lantus] 14 unit SQ HS 05/06/16 03/20/20 [place] Carbonate 300 mg PO QID 05/06/16 03/20/20 Loratadine [Claritin] 10 mg PO DAILY 05/06/16 03/20/20 Losartan [Cozaar] 100 mg PO DAILY 05/06/16 03/20/20 Naproxen 500 mg PO Q12HR 05/06/16 03/20/20 buPROPion HCL [Wellbutrin SR] 150 mg PO DAILY 05/06/16 03/20/20 Albuterol Sulfate [Proair Hfa] 2 inhalation INHALATION 02/18/20 03/20/20 DIRECTED PRN Atorvastatin [Lipitor] 40 mg PO HS 02/18/20 03/20/20 Docusate [Colace] 100 mg PO DAILY 02/18/20 03/20/20 Oxybutynin Chloride [Ditropan] 5 mg PO DAILY 02/18/20 03/20/20 Pioglitazone [Actos] 15 mg PO DAILY 02/18/20 03/20/20 Spironolactone [Aldactone] 100 mg PO DAILY 02/18/20 03/20/20 amLODIPine [Norvasc] 5 mg PO DAILY 02/18/20 03/20/20 Omeprazole [PriLOSEC] 40 mg PO DAILY 03/19/20 03/20/20 Previous Rx's Medication Instructions Recorded Ketorolac [Toradol] 10 mg PO Q8HR #15 tab 01/02/22 Allergies Allergy/AdvReac Type Severity Reaction Status Date / Time Sulfa (Sulfonamide Allergy Rash/Hives Verified 04/30/22 10:20 Antibiotics) Review of Systems ROS Statement: Those systems with pertinent positive or pertinent negative responses have been documented in the HPI. ROS Other: All systems not noted in ROS Statement are negative. Past Medical History Past Medical History: Asthma, COPD, Diabetes Mellitus, Hypertension, Respiratory Disorder, Sleep Apnea/CPAP/BIPAP Additional Past Medical History / Comment(s): Heart murmur. Chronic bronchitis. Uses CPAP. chronic Constipation problems History of Any Multi-Drug Resistant Organisms: None Reported Past Surgical History: Orthopedic Surgery Additional Past Surgical History / Comment(s): Rt rotator cuff repair. Colonoscopy x2 Past Anesthesia/Blood Transfusion Reactions: Motion Sickness Additional Past Anesthesia/Blood Transfusion Reaction / Comment(s): sl motion sickness Past Psychological History: Anxiety, Bipolar Smoking Status: Never smoker Past Alcohol Use History: None Reported Past Drug Use History: None Reported - Past Family History Sister(s) Family Medical History: Cancer Additional Family Medical History / Comment(s): breast cancer. (Maternal Grandmother - breast cancer) General Exam Limitations: no limitations General appearance: alert, in no apparent distress Head exam: Present: atraumatic, normocephalic, normal inspection Respiratory exam: Present: normal lung sounds bilaterally. Absent: respiratory distress, wheezes, rales, rhonchi, stridor Cardiovascular Exam: Present: regular rate, normal rhythm, normal heart sounds. Absent: systolic murmur, diastolic murmur, rubs, gallop, clicks Neurological exam: Present: alert, oriented X3, CN II-XII intact Psychiatric exam: Present: normal affect, normal mood Skin exam: Present: other (3 cm laceration to the palmar aspect of the right hand inferior to the thumb. Visible subcutaneous tissue. No active bleeding.) Course Vital Signs 04/30/22 04/30/22 10:18 12:12 Temperature 98 F Pulse Rate 65 59 L Respiratory 20 18 Rate Blood Pressure 137/60 173/75 O2 Sat by Pulse 98 99 Oximetry Procedures - Laceration Laceration #1 Consent Obtained: verbal consent Indication: laceration Site: hand Size (cm): 3 Description: linear Depth: simple, single layer Anesthetic Used: lidocaine 1% Anesthesia Technique: local infiltration Amount (mls): 5 Type of Sutures: nylon Size of Sutures: 5-0 Number of Sutures: 5 Technique: simple, interrupted Medical Decision Making - Medical Decision Making This is a 57-year-old female who presents to the emergency department for a laceration to the right hand. Was pt. sent in by a medical professional or institution? @ -No Did you speak to anyone other than the patient for history? @ -No Did you review nursing and triage notes? @ -Yes, and I agree, it is accurate with regards to the patient's symptoms. Were old charts reviewed? @ -No Differential Diagnosis? @ -Not applicable What testing was considered but not performed? (CT, X-rays, U/S, labs)? Why? @ -None What meds were considered but not given? Why? @ -None Did you discuss the management of the patient with other professionals? @ -No Did you reconcile home meds? @ -No Was smoking cessation discussed for >3mins.? @ -No Was critical care preformed (if so, how long)? @ -No Were there social determinants of health that impacted care today? How? (Homelessness, low income, unemployed, alcoholism, drug addiction, transportation, low edu. Level, literacy, decrease access to med. care, half-way, rehab)? @ -No Was there de-escalation of care discussed even if they declined? (Discuss DNR or withdrawal of care, Hospice)? @ -No What co-morbidities impacted this encounter? (DM, HTN, Smoking, COPD, CAD, Cancer, CVA, Hep., AIDS, mental health diagnosis, sleep apnea, morbid obesity)? @ -None Was patient admitted / discharged? @ -Discharged. Her tetanus status was updated and sutures were placed. She was instructed to return in 5-7 days for suture removal. Instructed her to alternate with ibuprofen and Tylenol as needed for pain relief. Signs and symptoms of infection reviewed, such as redness, swelling, drainage, fevers, or increased pain, necessitating the need to return to the emergency department. Undiagnosed new problem with uncertain prognosis? @ -None Drug Therapy requiring intensive monitoring for toxicity (Heparin, Nitro, Insulin, Cardizem)? @ -None Were any procedures done? @ -Yes, sutures for laceration, please see the procedure note. Diagnosis/symptom? @ -Laceration Acute, or Chronic, or Acute on Chronic? @ -Acute Uncomplicated (without systemic symptoms) or Complicated (systemic symptoms)? @ -Uncomplicated Side effects of treatment? @ -None Exacerbation, Progression, or Severe Exacerbation] @ -Not applicable Poses a threat to life or bodily function? @ -No Return precautions reviewed in depth, the patient is instructed to return to the emergency department with any new, worsening, or concerning symptoms. Patient verbalized understanding. This case was discussed in detail with the attending ED physician, Dr. Brannon. Presentation, findings, and treatment plan discussed in detail as well. Disposition Clinical Impression: Laceration Disposition: HOME SELF-CARE Instructions (If sedation given, give patient instructions): Care For Your Stitches (ED) Additional Instructions: Return to the emergency department with any new, worsening, or concerning symptoms and in 5-7 days for removal of the stitches. Keep the area dry for at least 24 hours and otherwise make sure that it stays clean. Alternate with ibuprofen and Tylenol as needed for pain relief. Follow up with your primary care provider in 1-2 days. Is patient prescribed a controlled substance at d/c from ED?: No Referrals: Jacey Mireles MD [Primary Care Provider] - 1-2 days
[2022-04-30 12:13] VITALS: BP 173/75; PULSE 59; RESP 18
== END 2022-04-30 12:13 | disposition home or self-care (01) ==
LOC: EC 10:15
DX: S61.411A Laceration without foreign body of right hand, initial encounter (principal); J44.9 Chronic obstructive pulmonary disease, unspecified; E11.9 Type 2 diabetes mellitus without complications; I10 Essential (primary) hypertension; G47.30 Sleep apnea, unspecified; F41.9 Anxiety disorder, unspecified; F31.9 Bipolar disorder, unspecified; Z23 Encounter for immunization; Z79.51 Long term (current) use of inhaled steroids; Z79.4 Long term (current) use of insulin; Z79.84 Long term (current) use of oral hypoglycemic drugs; Z79.899 Other long term (current) drug therapy; Z88.2 Allergy status to sulfonamides; W26.9XXA Contact with unspecified sharp object(s), initial encounter
CPT/HCPCS: 90715; 99282; 90471; 12002; J2001

== ENCOUNTER → 2022-08-02 | Outpatient (CLI) | payer OTHER ==
--- NOTE | 2022-08-03 21:40 | CT ---
EXAMINATION TYPE: CT chest w con DATE OF EXAM: 08/03/2022 COMPARISON: NONE HISTORY: Possible lung mass. CT DLP: 680.70 mGycm. Automated Exposure Control for Dose Reduction was Utilized. TECHNIQUE: CT scan of the thorax is performed following with IV Contrast, patient injected with 100 mL of Isovue 300. FINDINGS: LUNGS: Mild linear scarring or atelectasis in the lingula. Some faint groundglass opacity at this lev el is also seen. Incidental 3 mm peripheral left lower lobe nodule axial image 41. No suspicious grea ter than 5 mm pulmonary nodules or masses Mild linear scarring and/or atelectasis in the left lung ba se. There is no pleural effusion or pneumothorax seen. Right lung is clear. The tracheobronchial tree is patent. MEDIASTINUM: There are no greater than 1 cm hilar or mediastinal lymph nodes. No cardiomegaly or pe ricardial effusion is seen. Enlarged main pulmonary artery axial image 27 suggestive of underlying p ulmonary artery hypertension. OTHER: Slight low dense nodular thickening left adrenal gland axial image 61 consistent with benign s mall lipid rich adenoma. Focal moderate atrophy in the inferior pancreatic head. Bridging osteophytes in the anterior and right aspect of the mid to lower thoracic spine are seen. IMPRESSION: No significant greater than 5 mm pulmonary nodule or mass. No suspicious thoracic adenopa thy. Possible early infiltrate and/or edema in the lingula. Correlate clinically.
== END | disposition home or self-care (01) ==
LOC: RADCTMAIN 15:57
PROVIDERS: ATTEND Family Medicine
DX: R93.89 Abnormal findings on diagnostic imaging of other specified body structures (principal)
CPT/HCPCS: 36415; 71260; 71270; 82565; 84520